=== PATIENT | female | born 1995 | race Caucasian/White ===

== ENCOUNTER 2025-02-01 12:42 | Emergency (ER) | payer MEDICAID ==
[~2025-02-01] VITALS: Ht 167.6 cm; Wt 88.0 kg
[2025-02-01 12:44] VITALS: BP 128/83; PULSE 100; RESP 16; TEMP 36.7; O2SAT 97
[2025-02-01 12:46] VITALS: O2SAT 99
[2025-02-01] MEDS ORDERED: ACETAMINOPHEN 325MG TABLET PO ONE (13:45)
[2025-02-01] MEDS ORDERED: IBUPROFEN 400MG TABLET PO ONE (13:45)
== END 2025-02-01 14:18 | disposition left against medical advice (07) ==
LOC: ER 12:42
DX: M79.671 Pain in right foot (principal); Z98.890 Other specified postprocedural states
CPT/HCPCS: 99281; 99282